=== PATIENT | male | born 1975 | race Caucasian/White ===

== ENCOUNTER 2016-09-12 17:01 | Emergency (ER) | payer OTHER ==
[~2016-09-12] VITALS: Ht 177.8 cm; Wt 112.3 kg
[2016-09-12 17:47] LABS: HEMATOCRIT 43.7 % (38.0-50.0); MCH 29.4 PG (29.0-34.0); MCHC 35.7 G/DL (30.0-36.0); MCV 82.5 FL (86-99); MEAN PLAT.VOLUME 9.8 uM^3 (9.0-12.4); PLATELET COUNT 301 K/uL (156-360); RBC DIS.WIDTH-CV 13.1 % (11.8-14.6); RBC DIS.WIDTH-SD 39.1 % (39-53); WHITE BLOOD COUNT 10.2 K/uL (4.1-10.2)
[2016-09-12 17:55] LABS: CHLORIDE 103 mEq/L (99-109); POTASSIUM 4.1 mEq/L (3.7-5.4); SODIUM 140 mEq/L (136-147)
[2016-09-12 17:57] LABS: GLUCOSE 91 mg/dL (70-99)
[2016-09-12 17:59] LABS: ANION GAP 10 MEQ/L (2-14); TOTAL BILIRUBIN 0.4 mg/dL (0.0-1.0)
[2016-09-12 18:01] LABS: ALKALINE PHOSPHATASE 74 IU/L (3-129)
[2016-09-12 18:02] LABS: GFR ESTIMATE (CALCULATED) > 59 mL/min/; UREA NITROGEN (BUN) 11 mg/dL (9-23)
[2016-09-12 18:05] LABS: ADD MIUA? NO; BILIRUBIN NEGATIVE; BLOOD NEGATIVE; COLOR YELLOW ((YELLOW)); GLUCOSE (STRIP) NEGATIVE; KETONES NEGATIVE; LEUKOCYTES NEGATIVE; NITRITE NEGATIVE; PROTEIN (STRIP) NEGATIVE; SPECIFIC GRAVITY 1.014 (1.000-1.030); UCUL ADDED? NO; UROBILINOGEN 0.2 MG/DL (0.2-1.0)
[2016-09-12 18:16] LABS: LIPASE 21 U/L (1.0-51.0)
[2016-09-12] MEDS ORDERED: ARIPIPRAZOLE10 MG PO (18:20)
[2016-09-12] MEDS ORDERED: CLARITIN10 M3 PO (18:21)
[2016-09-12] MEDS ORDERED: DIVALPROEX SOD500 M1 PO (18:21)
[2016-09-12 20:37] VITALS: BP 142/89
== END 2016-09-12 20:39 | disposition home or self-care (01) ==
LOC: EME 17:01
DX: S39.011A Strain of muscle, fascia and tendon of abdomen, initial encounter (principal); R10.11 Right upper quadrant pain
CPT/HCPCS: 71020; 76705; 80053; 81003; 83690; 85027; 99281; 99284

== ENCOUNTER → 2016-10-23 | Outpatient (CLI) | payer OTHER ==
[~2016-10-23] MED LIST: ARIPIPRAZOLE10 MG PO; CLARITIN10 M3 PO; DIVALPROEX SOD500 M1 PO
== END | disposition home or self-care (01) ==
LOC: NUC 07:00
DX: R10.9 Unspecified abdominal pain (principal)
CPT/HCPCS: 78227; A9537; J2805